=== PATIENT | female | born 1970 | race Caucasian/White ===

== ENCOUNTER 2018-12-31 08:26 | Day surgery (SDC) | payer OTHER ==
--- NOTE | 2018-12-27 15:15 | HP ---
PREOPERATIVE HISTORY AND PHYSICAL: DATE OF SURGERY/ADMISSION: 12/31/18 ATTENDING SURGEON: Renu Crowell MD.* (DICTATED BY JOHN ZHANG) PROCEDURE: Left thumb carpometacarpal joint arthroplasty, left thumb trigger release. DATE OF OFFICE VISIT/ENCOUNTER: 12/16/18 HISTORY OF PRESENT ILLNESS: This is a 48-year-old female who has had ongoing pain in her left thumb both at the base and in the area of the A1 fran. She has had active triggering in the thumb and clinical evaluation and x-ray show arthritis at the CMC joint. She has had cortisone injections for both of these problems. Unfortunately, the symptoms returned. She is now interested in pursuing surgical intervention for both of these issues. PAST MEDICAL HISTORY: 1. GERD. 2. Diabetes. 3. Hypercholesterolemia. 4. Hypertension. 5. Neck pain. 6. Anxiety/depression. PAST SURGICAL HISTORY: 1. Appendectomy. 2. Tonsillectomy. 3. Right breast lumpectomy. CURRENT MEDICATIONS: 1. Atorvastatin calcium 40 mg. 2. Carisoprodol 350 mg 4 times a day. 3. Escitalopram oxalate 10 mg daily. 4. Ibuprofen 200 mg 2 tabs q.6 hours p.r.n. 5. Lisinopril 20 mg daily. 6. Metformin HCl 500 mg daily. 7. Multivitamin daily. 8. Omeprazole 20 mg daily. ALLERGIES: No known drug allergies. FAMILY MEDICAL HISTORY: Hypertension. 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 She is a former smoker. She 5 five years ago, prior to that she smoked 3 to 4 cigarettes a day for about 10 years. She denies recreational drug use. She does drink alcohol on rare occasions. REVIEW OF SYSTEMS: Negative for general, cephalic, cardiovascular, respiratory , GI, other musculoskeletal, integumentary, endocrine, neurologic and hematologic symptoms. Infectious diseases is negative for MRSA, hepatitis C, HIV. PHYSICAL EXAMINATION GENERAL: Well-developed, well nourished 48-year-old female in on acute distress. VITAL SIGNS: Height 5 feet 2 inches, weight 177 pounds, blood pressure 122/84, pulse rate 64. HEENT: Normocephalic, atraumatic. Pupils are equal, round and reactive to light and accommodation. Extraocular movements are intact. Throat is clear. NECK: Supple. No palpable lymph nodes. PULMONARY: Lungs are clear to auscultation bilaterally. No wheezes, rales, or rhonchi. CARDIOVASCULAR: Regular rate and rhythm. S1, S2. No murmurs, rubs or gallop. No edema. ABDOMEN: Positive bowel sounds, soft, nontender. MUSCULOSKELETAL: On exam of her left hand, she has a prominence of her thumb CMC joint and exquisite tenderness at the thumb CMC joint as well as at the A1 fran of the left thumb. She has trouble flexing the thumb because of pain and locking. Skin is intact. Neurovascular function is intact. NEUROLOGIC: Alert and oriented x3. Cranial nerves II through XII are intact. Sensation is intact to light touch. IMAGING STUDIES: AP, lateral, and oblique of her left thumb show moderate-to- severe degenerative arthritis at the CMC joint. IMPRESSION: Left thumb carpometacarpal joint arthritis and left trigger thumb. PLAN: The patient is scheduled to undergo a left thumb carpometacarpal joint arthroplasty and a left thumb trigger release with Dr. Crowell on 12/31/18. She will return to the office in 10 days postop for follow up and suture removal. A prescription for [place] was e-scribed to the patient's pharmacy for postoperative pain management. JOHN ZHANG [id number]/CPS #: [id number] MTDD
[~2018-12-31 08:26] MED LIST: Buffered Lidocaine 1% SYRIN* 1 ML/SYRINGE INTRADERM ONE; Lactated Ringers 1000 ML Bag* 1,000 ML IV SCH; Sodium Citrate/Citric Acid* 15 ML UDC PO ONE
[2018-12-31] MEDS ORDERED: ceFAZolin 2 GM PREMIX in ORs 2 GM/50 ML BAG IVPB ONE (08:31)
[2018-12-31] MEDS ORDERED: Midazolam* 1 MG/ML 2 ML VIAL (2 MG) ONE ×3 (10:06→10:49)
[2018-12-31] MEDS ORDERED: Lidocaine 0.5%* 50 ML SDV ONE (10:09)
[2018-12-31] MEDS ORDERED: Bupivacaine 0.5% SDV PF* 30ML VIAL ONE (10:30)
[2018-12-31] MEDS ORDERED: fentaNYL* 50 MCG/ML 2 ML VIAL (100 MCG VIAL) ONE (10:45)
[2018-12-31] MEDS ORDERED: Propofol* 10 MG/ML 20 ML BTL ONE (10:48)
[2018-12-31] MEDS ORDERED: Naloxone* 0.4 MG/ML 1 ML VIAL IV PRN (11:14)
[2018-12-31] MEDS ORDERED: HYDROcodone/ACETAMIN 5-325 MG* 1 TAB ONE (11:23)
[2018-12-31 11:54] VITALS: BP 127/75
--- NOTE | 2018-12-31 13:29 | OP ---
CC: Dr. Crowell* OPERATIVE REPORT: DATE OF OPERATION: 12/31/18 - GURPREET DATE OF : 70 SURGEON: Renu Crowell MD ASSISTANTS: JOHN Blue and JOHN Chatterjee ANESTHESIOLOGIST: Jac Breen DO ANESTHESIA: IV regional. PRE-OP DIAGNOSES: Left trigger thumb and left carpometacarpal arthritis of the thumb. POST-OP DIAGNOSES: Left trigger thumb and left carpometacarpal arthritis of the thumb. OPERATIVE PROCEDURE: Left trigger thumb release and left thumb CMC arthroplasty. ESTIMATED BLOOD LOSS: Zero. TOURNIQUET TIME: About 30 minutes. INDICATIONS FOR PROCEDURE: Vanesa is a 48-year-old female who has painful arthritis at the base of her left thumb as well as triggering of the left thumb. She presents for trigger release and CMC arthroplasty. DESCRIPTION OF PROCEDURE: The patient was brought to the operating room, was given an IV regional anesthetic and a sedation anesthetic. The skin of her left upper extremity was prepped and draped in the usual sterile fashion. A transverse incision was made over the A1 fran of the left thumb. We dissected bluntly through the subcutaneous tissue. The digital neurovascular bundles were retracted by the surgical nurse practitioner, Teresa Monteiro, whose assistance was essential for safe completion of the case. The A1 fran was incised longitudinally, releasing the flexor tendon which was in good condition. The wound was irrigated and the skin edges were reapproximated with 4-0 nylon suture. Next, an S-shaped incision was made centered over the CMC joint of the left thumb. We dissected through the subcutaneous tissue, again branches of the radial sensory nerve were located and then retracted by the surgical nurse practitioner, Teresa Monteiro. The APL and EPB tendons were retracted and then a distally based U-shaped flap was created of the CMC joint capsule and subperiosteally dissected off of the CMC joint and trapezium. The trapezium was removed in its entirety and sent for pathology. The joint capsule was then secured to the FCR tendon with 4-0 nylon suture and the remainder of the capsule was closed with 4-0 nylon suture. Abduction position of the MP joint was nicely flexed. The wound was irrigated and the skin edges were reapproximated with 4-0 nylon suture. Wound was dressed with Xeroform, 4x4, Webril, and a thumb spica splint with some metacarpal abducted and the MP joint flexed 30 degrees. The patient tolerated the procedure well and was brought to the recovery room in good condition. [id number]/CPS #: [id number] YANNI
== END 2018-12-31 11:45 | disposition home or self-care (01) ==
LOC: OREAST 08:26
PROVIDERS: ATTEND Orthopaedic Surgery
DX: M18.12 Unilateral primary osteoarthritis of first carpometacarpal joint, left hand (principal); M65.312 Trigger thumb, left thumb; I10 Essential (primary) hypertension; F41.8 Other specified anxiety disorders; K21.9 Gastro-esophageal reflux disease without esophagitis; E11.9 Type 2 diabetes mellitus without complications; Z79.84 Long term (current) use of oral hypoglycemic drugs; E78.00 Pure hypercholesterolemia, unspecified
CPT/HCPCS: 81025; 88304; 88311; J0690; J2250; J2704; J3010; J3490

== ENCOUNTER 2019-08-25 16:08 | Emergency (ER) | payer OTHER ==
[2019-08-25] MEDS ORDERED: Ondansetron ODT TAB* 4 MG PO ONE (17:12)
--- NOTE | 2019-08-25 17:20 | UC ---
UC General HPI - HPI Summary HPI Summary: 49-year-old woman comes in with a chief complaint of injury sustained after a trip and fall at home about 2 hours ago. Patient was walking down the stairs Stairs She Tried to Avoid the Cat and Fell 4-5 Steps down and She Struck Her Head She Feels like She Lost Consciousness She's Not Sure How Long She Lost Consciousness for She Thinks It Was Just about a Minute. Also has left-sided neck pain, left shoulder humerus and elbow pain, right wrist and thumb pain. Denies any leg or hip pain, no complaint of any shortness of breath. Does feel nauseous. The light bothers her eyes a little bit. No weakness or numbness. She does have increased pain with movement of any the injured areas. She did take some acetaminophen prior to arrival. Does have an abrasion on her forehead with dried blood on. - History of Current Complaint Chief Complaint: UCHeadInjury Stated Complaint: HEAD, SHOULDER INJURY, BRIEF LOSS OF CONS. Time Seen by Provider: 08/25/19 17:04 Hx Last Menstrual Period: mirena Pain Intensity: 10 - Allergy/Home Medications Allergies/Adverse Reactions: Allergies Allergy/AdvReac Type Severity Reaction Status Date / Time No Known Allergies Allergy Verified 08/25/19 16:26 Home Medications: Home Medications Acetaminophen [Tylenol] 325 mg PO Q6HR 08/25/19 [History Confirmed 08/25/19] PMH/Surg Hx/FS Hx/Imm Hx Previously Healthy: Yes Endocrine History: Diabetes, Dyslipidemia Cardiovascular History: Hypertension GI/ History: Gastroesophageal Reflux - Surgical History Surgical History: None Surgery Procedure, Year, and Place: [place] [facility] [place], [facility] breast biopsy, 2016, [facility] - Family History Known Family History: Positive: None Negative: Cardiac Disease, Hypertension, Diabetes - Social History Alcohol Use: Rare Alcohol Amount: 2 per month Substance Use Type: None Smoking Status (MU): Former Smoker When Did the Patient Quit Smoking/Using Tobacco: 10 yrs ago Review of Systems All Other Systems Reviewed And Are Negative: Yes Constitutional: Positive: Other - SEE HPI Skin: Positive: Other - SEE HPI Eyes: Positive: Other - SEE HPI ENT: Positive: Negative Respiratory: Positive: Negative Cardiovascular: Positive: Negative Gastrointestinal: Positive: Nausea Motor: Positive: Other - SEE HPI Neurovascular: Positive: Negative Musculoskeletal: Positive: Other: - SEE HPI Neurological: Positive: Headache Psychological: Positive: Negative Is Patient Immunocompromised?: No Physical Exam Triage Information Reviewed: Yes Appearance: Well-Appearing, Well-Nourished, Pain Distress - MILD WITH ROM AND EXAM Vital Signs: Initial Vital Signs Temp 98 F 08/25/19 16:18 Pulse 111 08/25/19 16:18 Resp 16 08/25/19 16:18 BP 136/86 08/25/19 16:18 Pulse Ox 95 08/25/19 16:18 Vital Signs Reviewed: Yes Eyes: Positive: Other: - PERRLA EOMI. Patient reports mild photophobia when examining pupillary response with light. ENT: Positive: TMs normal - No hemotympanum Neck: Positive: Supple, Other: - Mild tenderness to palpation left side of the neck. No tenderness in the midline. Respiratory: Positive: Lungs clear, Normal breath sounds, No respiratory distress Cardiovascular: Positive: RRR Musculoskeletal: Positive: Other: - Mild tenderness to palpation left neck. Tender to palpation the left shoulder joint the left humerus and left elbow. Left fingers wrists have full range of motion and normal capillary refill normal sensation normal radial pulse. Clavicles are nontender to palpation except for the distal left clavicle.. Right shoulder is nontender to palpation. Right elbow has mild tenderness to palpation has full range of motion. Patient's tender to palpation right distal radius into the right proximal thumb. She has difficulty moving the thumb secondary to pain. Fingers have full range of motion. Normal capillary refill normal right radial pulse. No sensation deficit. Legs have full range of motion without any pain. Neurological: Positive: Muscle Tone Normal, Other: - Patient mildly slow to respond to questions. No focal neurologic deficit. Does answer appropriately. Psychological: Positive: Age Appropriate Behavior Skin: Positive: Other - Abrasion left forehead Course/Dx - Course Course Of Treatment: Third Loader: Neil Pichardo F ([id number]) Pool Table Mechanic: CHATO ( CHATO) Report Date: 08/25/2019 18:09:00 Report Status: Final ====== Start of Report Content Patient Name: ELI YI Medical Record#: [id number] Ordering Physician: Nir Blackwood MD Acct.#: [id number] : 1970 Age: 49 Sex: F Location: [facility] Exam Date: 08/25/191712 ADM Status: REG ER Order Information: SHOULDER LEFT 2+ VWS Accession Number: [id number] CPT: 41924 INDICATION: Left shoulder injury. TECHNIQUE: 4 views of the left shoulder were obtained. FINDINGS: The bones are in normal alignment. No fracture is seen. The glenohumeral and acromioclavicular joint spaces appear maintained. IMPRESSION: NO EVIDENCE FOR FRACTURE. < Electronically signed by Neil Pichardo MD in OV> 08/25/191805 Dictated By: Neil Pichardo MD Dictated Date/Time: 08/25/191804 Transcribed Date/Time: 10/13 Copy to: CC:Gay Bueno MD; Nir Blackwood MD Imaging - [facility] Imaging - [facility] [address] [place] [address] ph [phone]) ph ([phone]) ph ([phone]) ===== End of Report Content Third Loader: Neil Pichardo F ([id number]) Pool Table Mechanic: CHATO ( NUANCE) Report Date: 08/25/2019 18:09:00 Report Status: Final ====== Start of Report Content Patient Name: ELI YI Medical Record#: [id number] Ordering Physician: Nir Blackwood MD Acct.#: [id number] : 1970 Age: 49 Sex: F Location: [facility] Exam Date: 08/25/19 1713 ADM Status: REG ER Order Information: HUMERUS LEFT Accession Number: [id number] CPT: 15990 INDICATION: Left humerus injury. TECHNIQUE: 2 views of the left humerus were obtained. FINDINGS: The bones are in normal alignment. No fracture is seen. IMPRESSION: NO EVIDENCE FOR FRACTURE. <Electronically signed by Neil Pichardo MD in OV> 08/25/191804 Dictated By: Neil Pichardo MD Dictated Date/Time: 08/25/191803 Transcribed Date/Time: 08/25/191803 Copy to: CC:Gay Bueno MD; Nir Blackwood MD Imaging - [facility] Imaging - [place] [facility] [address] [place] [address] ph [phone]) ph ([phone]) ph ([phone]) End of Report Content Third Loader: Neil Pichardo F, ([id number]) Pool Table Mechanic: CHATO, ( NUANCE) Report Date: 08/25/2019 18:08:00 Report Status: Final ====== Start of Report Content Patient Name: ELI YI Medical Record#: [id number] Ordering Physician: Nir Blackwood MD Acct.#: [id number] : 1970 Age: 49 Sex: F Location: [facility] Exam Date: 08/25/191712 ADM Status: [facility] ER Order Information: HAND - RIGHT MINIMUM 3 VIEWS Accession Number: [id number] CPT: 92434 INDICATION: Right hand injury. TECHNIQUE: 4 views of the right hand were obtained. FINDINGS: The bones are in normal alignment. No fracture is seen. There is moderate osteoarthritic change in the first carpal metacarpal joint. IMPRESSION: NO EVIDENCE FOR FRACTURE, IF THE PATIENT'S SYMPTOMS PERSIST RECOMMEND FOLLOW-UP IMAGING. <Electronically signed by Neil Pichardo MD in OV> 08/25/191803 Dictated By: Neil Pichardo MD Dictated Date/Time: 08/25/191802 Transcribed Date/Time: 08/25/191802 Copy to: CC:Gay Bueno MD; Nir Blackwood MD Imaging - [facility] Imaging - [facility] Imaging - [facility] [address] [address] ph ) ph [phone]) ph ([phone]) End of Report Content ==== Third Loader: Neil Pichardo F ([id number]) Pool Table Mechanic: CHATO, ( NUANCE) Report Date: 08/25/2019 18:06:00 Report Status: Final ====== Start of Report Content Patient Name: ELI YI Medical Record#: [id number] Ordering Physician: Nir Blackwood MD Acct.#: [id number] : 1970 Age: 49 Sex: F Location: [facility] Exam Date: 08/25/191712 ADM Status: REG ER Order Information: ELBOW LEFT 3+VWS Accession Number: [id number] CPT: 19731 INDICATION: Left elbow injury. TECHNIQUE: 4 views of the left elbow were obtained. FINDINGS: The bones are in normal alignment. No joint effusion or fracture is seen. Joint spaces appear maintained. IMPRESSION: NO EVIDENCE FOR FRACTURE. <Electronically signed by Neil Pichardo MD in OV> 08/25/191801 Dictated By: Neil Pichardo MD Dictated Date/Time: 08/25/191801 Transcribed Date/Time: 08/25/191801 Copy to: CC:Gay Bueno MD; Nir Blackwood MD Imaging - [facility] Imaging [facility] [address] [address] ph [phone]) ph ) ph [phone]) End of Report Content Third Loader: Neil Pichardo F, ([id number]) Pool Table Mechanic: CHATO ( NUANCE) Report Date: 08/25/2019 18:06:00 Report Status: Final ====== Start of Report Content Patient Name: ELI YI Medical Record#: [id number] Ordering Physician: Nir Blackwood MD Acct.#: [id number] : 1970 Age: 49 Sex: F Location: [facility] Exam Date: 08/25/19 1712 ADM Status: REG ER Order Information: CT SPINE CERVICAL W/O Accession Number: [id number] CPT: 36564 INDICATION: Trauma. COMPARISON: Comparison is made with a prior study from April 18, 2011. TECHNIQUE: Contiguous axial sections were obtained from the skull base through the T2 vertebra. Images were reconstructed in the sagittal and coronal planes. FINDINGS: VERTEBRA: There is straightening or reversal of the normal cervical lordosis. No fracture is seen. C2-C3: There is a mild broad-based disc bulge. No spinal canal or neural foraminal narrowing is seen. C3-C4: There is a mild broad-based disc bulge. No spinal canal or neural foraminal narrowing is seen. C4-C5: No significant spinal canal or neural foraminal narrowing is seen. C5-C6 : There is posterior uncinate process spurring associated with a disc bulge. There is mild to moderate spinal canal narrowing present. There is mild to moderate neural foraminal narrowing on the left side. C6-C7: There is posterior uncinate process spurring associated with a broad-based disc bulge. There appears be mild spinal canal narrowing. LUNG APICES: The lung apices appear clear. IMPRESSION: 1. STRAIGHTENING AND REVERSAL OF THE NORMAL CERVICAL LORDOSIS. NO FRACTURE IS SEEN. 2. MILD TO MODERATE CERVICAL SPONDYLOSIS DESCRIBED. < Electronically signed by Neil Pichardo MD in OV> 08/25/19 1801 Dictated By: Neil Pichardo MD Dictated Date/Time: 08/25/191751 Transcribed Date/Time: 10/13 Copy to: CC:Gay Bueno MD; Nir Blackwood MD Imaging - [facility] Imaging - [facility] Imaging - [facility] [address] [address] ph [phone]) ph ([phone]) ph ([phone]) ===== End of Report Content Third Loader: Neil Pichardo F ([id number]) Pool Table Mechanic: CHATO ( NUANCE) Report Date: 08/25/2019 17:55:00 Report Status: Final ====== Start of Report Content Patient Name: ELI YI Medical Record#: [id number] Ordering Physician: Nir Blackwood MD Acct.#: [id number] : 1970 Age: 49 Sex: F Location: [facility] Exam Date: 08/25/191711 ADM Status: [facility] Order Information: CT BRAIN WO Accession Number: [id number] CPT: 22491 INDICATION: Head injury. COMPARISON: Comparison is made with a prior study from April 18, 2011. TECHNIQUE: Contiguous axial sections of the brain were obtained from the skull base to the vertex without contrast. FINDINGS: The ventricles, cisterns and sulci are within normal limits. No significant focal abnormality or mass effect is seen. There is no evidence for hemorrhage. The visualized portion of the paranasal sinuses and mastoid air cells appear clear. IMPRESSION: NO EVIDENCE FOR ACUTE INTRACRANIAL ABNORMALITY. <Electronically signed by Neil Pichardo MD in OV> 08/25/191751 Dictated By: Neil Pichardo MD Dictated Date/Time: 08/25/191748 Transcribed Date/Time: 08/25/191748 Copy to: CC:Gay Bueno MD; Nir Blackwood MD Imaging - [facility] Imaging - [facility] Imaging - [facility] [address] [facility] [address] [place] [id number] [place] [address] ph [phone]) ph ([phone]) ph [phone]) End of Report Content I discussed the x-rays with the patient. Patient reports Zofran she was given in clinic did improve her nausea. Patient has no focal neurologic deficit. We discussed signs and symptoms of head injuries concussion. If she has any concussion symptoms persist she is to follow-up with sports medicine. Also discussed soft tissue injuries of the shoulder and wrist to include navicular injury or rotator cuff injury and let the patient know that she needs to follow up with sports medicine or orthopedics if she does not improve completely. In clinic patient. Thumb spica splint by nursing and also a left sling by nursing patient neurovascular intact after placement. I discussed frozen shoulder and the need to perform range of motion exercises with a left shoulder I demonstrated these exercises to her. Plan will be ibuprofen and acetaminophen and Zofran as needed and follow-up with sports medicine orthopedic as needed. Also discussed if any symptoms worsened she needed to get seen in the emergency department right away. - Diagnoses Provider Diagnosis: Head injury, Concussion, Abrasion of forehead, Left shoulder pain, Pain of left humerus, Left elbow pain, Right wrist pain, Pain of right thumb, Neck pain Discharge ED - Sign-Out/Discharge Documenting (check all that apply): Patient Departure All imaging exams completed and their final reports reviewed: Yes - Discharge Plan Condition: Stable Disposition: HOME Prescriptions: Ondansetron ODT TAB* [Zofran 4 MG Odt TAB*] 4 mg PO Q6H PRN #15 tab.odt PRN Reason: Nausea Patient Education Materials: Head Injury (ED), Concussion (ED), Shoulder Pain ( ED), Elbow Sprain (ED), Wrist Injury (ED), Finger Sprain (ED), Abrasion (ED), Cervical Strain (ED) Referrals: Gay Bueno MD [Primary Care Provider] - [facility] [Provider Group] Nuris Betancourt MD [Medical Doctor] - Additional Instructions: FOLLOW UP WITH SPORTS MEDICINE FOR YOUR CONCUSSION OR INJURIES OR ORTHOPEDICS FOR YOUR NON CONCUSSION INJURIES IF NOT COMPLETELY IMPROVED. GO TO THE EMERGENCY DEPARTMENT IF WORSE; WEAKNESS, NUMBNESS, CONFUSION, DIFFICULTY WITH VISION OR SPEECH, PAIN, UNEXPLAINED VOMITING OR ANY QUESTIONS OR CONCERNS. - Billing Disposition and Condition Condition: STABLE Disposition: Home
[2019-08-25] MEDS ORDERED: Ibuprofen TAB* 600 MG PO ONE (18:32)
[2019-08-25 18:59] VITALS: BP 126/84
== END 2019-08-25 18:59 | disposition home or self-care (01) ==
LOC: UCEAST 16:08
DX: S09.90XA Unspecified injury of head, initial encounter (principal); S06.0X0A Concussion without loss of consciousness, initial encounter; S00.81XA Abrasion of other part of head, initial encounter; E11.9 Type 2 diabetes mellitus without complications; I10 Essential (primary) hypertension; M47.892 Other spondylosis, cervical region; M25.512 Pain in left shoulder; M25.522 Pain in left elbow; M25.531 Pain in right wrist; M79.644 Pain in right finger(s); M54.2 Cervicalgia; Z87.891 Personal history of nicotine dependence; W10.9XXA Fall (on) (from) unspecified stairs and steps, initial encounter; Y93.01 Activity, walking, marching and hiking; Y92.009 Unspecified place in unspecified non-institutional (private) residence as the place of occurrence of the external cause
CPT/HCPCS: 70450; 72125; 99213; A9270-GY; G0463

== ENCOUNTER 2019-10-24 22:11 | Observation (INO) | payer OTHER ==
--- NOTE | 2019-10-24 22:21 | ED ---
Complex/Multi-Sys Presentation - HPI Summary HPI Summary: 49 year old F presenting to [facility] with a chief complaint of a fall and shakiness since 17:00/18:00. The patient rates the pain 6/10 in severity. Patient reports difficulty walking, blurry vision, some difficulty with her speech, and that she was unable to get up after her fall with the assistance of her . Symptoms aggravated by nothing. Symptoms alleviated by nothing. Patient denies nausea, vomiting, or double vision. Per EMS the patient has reportedly been heavily drinking for the last week and her last alcoholic beverage was yesterday. Per her the patient began shaking and was incoherent after dinner at 19:00 which progressively worsened as he could not help the patient ambulate secondary to the diffuse tremors. He reports that the patient last drank alcohol yesterday in the [employer]. History of diabetes which is now diet controlled. Medication list reviewed. Allergy list reviewed. The patient is not prescribed blood thinners. Provider in room at 2209. NIHSS completed at 22:12. Andressa George called at 22:30. - History Of Current Complaint Time Seen by Provider: 10/24/19 22:11 Hx Obtained From: Patient, Family/[employer]at [employer] - , EMS Onset/Duration: Sudden Onset Timing: Constant Severity Currently: Moderate - 6/10 Aggravating Factor(s): None Alleviating Factor(s): None Associated Signs And Symptoms: Positive: Other - Fall; difficulty walking; difficulty speaking. Negative: Nausea, Vomiting - Allergies/Home Medications Allergies/Adverse Reactions: Allergies Allergy/AdvReac Type Severity Reaction Status Date / Time No Known Allergies Allergy Verified 10/24/19 22:42 Home Medications: Home Medications Omeprazole CAP (NF) [Prilosec CAP* 20 MG] 20 mg PO QAM 11/11/14 [History Confirmed 10/24/19] Ibuprofen TAB* [Motrin TAB* 600 MG] 600 mg PO Q6H PRN #20 tab 08/25/19 [Rx Confirmed 10/24/19] ALPRAZolam [Alprazolam] 0.25 mg PO BID 10/24/19 [History Confirmed 10/24/19] Acetaminophen TAB* [Tylenol TAB*] 325 mg PO Q6H PRN 10/24/19 [History Confirmed 10/24/19] Albuterol HFA INHALER* [Ventolin HFA Inhaler*] 1 - 2 puff INH Q6H PRN 10/24/19 [ History Confirmed 10/24/19] Atorvastatin* [Lipitor*] 40 mg PO DAILY 10/24/19 [History Confirmed 10/24/19] Escitalopram * [Lexapro *] 20 mg PO DAILY 10/24/19 [History Confirmed 10/24/19] Lisinopril TAB* [Prinivil TAB*] 20 mg PO DAILY 10/24/19 [History Confirmed 10/23] Multivitamins/Minerals TAB* [Theragran/minerals TAB*] 1 tab PO DAILY 10/24/19 [ History Confirmed 10/24/19] metFORMIN* [Glucophage 500 MG TAB *] 500 mg PO DAILY 10/24/19 [History Confirmed 10/24/19] traZODone TAB* [Desyrel TAB*] 50 mg PO BEDTIME 10/24/19 [History Confirmed 10/23] Carisoprodol [Soma] 350 mg PO Q6HR PRN 10/25/19 [History Confirmed 10/25/19] PMH/Surg Hx/FS Hx/Imm Hx Endocrine/Hematology History: Reports: Hx Diabetes - type 2 - Denies: Hx Thyroid Disease Cardiovascular History: Reports: Hx Hypercholesterolemia, Hx Hypertension - on meds Denies: Hx Pacemaker/ICD, Other Cardiovascular Problems/Disorders Respiratory History: Denies: Hx Asthma GI History: Reports: Hx Gastroesophageal Reflux Disease Denies: Hx Ulcer Musculoskeletal History: Reports: Hx Arthritis - eugenie thumb Denies: Other Musculoskeletal History Sensory History: Reports: Hx Contacts or Glasses - readers Denies: Hx Hearing Aid Opthamlomology History: Reports: Hx Contacts or Glasses - readers Psychiatric History: Denies: Hx Panic Disorder - Cancer History Hx Chemotherapy: No Hx Radiation Therapy: No - Surgical History Surgery Procedure, Year, and Place: appendix, 20 yrs ago, [facility]. tonsils,25 yrs ago, [facility]. rt breast biopsy, 2016, [facility] Hx Anesthesia Reactions: No Infectious Disease History: Denies: Hx Clostridium Difficile, Hx Hepatitis, Hx Human Immunodeficiency Virus (HIV), Hx of Known/Suspected MRSA, Hx Shingles, Hx Tuberculosis, Hx Known/ Suspected VRE, Hx Known/Suspected VRSA, History Other Infectious Disease - Family History Known Family History: Negative: Cardiac Disease, Hypertension, Diabetes - Social History Alcohol Use: Daily - For the past week Alcohol Amount: 2 per month Hx Substance Use: No Substance Use Type: Reports: None Hx Tobacco Use: Yes Smoking Status (MU): Former Smoker Review of Systems Constitutional: Other - Fall; shaking Eyes: Negative - Double vision Positive: Blurred Vision Negative: Vomiting, Nausea Neurological/Mental Status: Other - Difficulty walking; difficulty speaking All Other Systems Reviewed And Are Negative: Yes Physical Exam - Summary Physical Exam Summary: Constitutional: Well-developed, Well-nourished, Alert, oriented to person, place , time, event. (-) Distressed Skin: Warm, Dry HENT: Normocephalic; Atraumatic Eyes: Conjunctiva normal; pupils equal and reactive Neck: Musculoskeletal ROM normal neck. (-) JVD, (-) Stridor, (-) Tracheal deviation; no lymphadenopathy in neck Cardio: Rhythm regular, rate normal, Heart sounds normal; Intact distal pulses; The pedal pulses are 2+ and symmetric. Radial pulses are 2+ and symmetric. (-) Murmur Pulmonary/Chest wall: Effort normal. (-) Respiratory distress, (-) Wheezes, (-) Rales Abd: Soft, (-) tenderness, (-) Distension, (-) Guarding, (-) Rebound Musculoskeletal: (-) Edema Lymph: (-) Cervical adenopathy Neuro: Alert, Oriented x3; NIH Stroke Scale of 5, see scale. GCS 14; diffuse tremor and she is having difficulty naming objects; confused; mild ataxia bilaterally; mild dysmetria on the left in the upper and lower extremities; questionable left lower quadrantanopia in the eyes; good strength and sensation bilaterally although she does have a drift in her legs that could be a tremor. Psych: Mood and affect Normal Triage Information Reviewed: Yes Vital Signs Reviewed: Yes - Meeker Coma Scale Best Eye Response: 4 - Spontaneous Best Motor Response: 5 - Purposeful Movement Best Verbal Response: 5 - Oriented Coma Scale Total: 14 Procedures - Sedation Patient Received Moderate/Deep Sedation with Procedure: No Diagnostics - Laboratory Result Diagrams: 10/24/19 23:01 10/24/19 23:01 Lab Statement: Any lab studies that have been ordered have been reviewed, and results considered in the medical decision making process. - Radiology Chest x-ray Radiology Interpretation Completed By: ED Physician Summary of Radiographic Findings: NAD. ED physician has reviewed and interpreted this EKG. - CT Head CTA CT Interpretation Completed By: Radiologist Summary of CT Findings: Normal head CTA. ED physician has reviewed this report. Brain CT CT Interpretation Completed By: Radiologist Summary of CT Findings: 1. No acute intracranial abnormality. Carol Stroke Program Early CT Score. (ASPECTS) = 10. 2. Brain atrophy out of proportion to patient's age. ED physician has reviewed this report. - EKG 22:51 Cardiac Rate: NL EKG Rhythm: Sinus Rhythm Summary of EKG Findings: Normal sinus rhythm at 80 bpm, normal NM, normal QRS, normal QTc, normal axis, normal ST, normal T-waves, normal EKG. ED physician has reviewed and interpreted this EKG. 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 Hand: Both Correctly Best Gaze (Only Horizontal Eye Movement): Normal Visual Field Testing: No Visual Loss Facial Paresis-Pt to Smile & Close Eyes or Grimace Symmetry: Normal/Symmetrical Motor Function - Right Arm: No Drift-Holds 10 Seconds Motor Function - Left Arm: No Drift-Holds 10 Seconds Motor Function - Right Leg: Drifts LT 10 seconds Motor Function - Left Leg: Drifts LT 10 seconds Limb Ataxia-Must be out of Proportion to Weakness Present: Present in Two Limbs Sensory (Use Pinprick to Test Arms/Legs/Trunk/Face): Normal Best Language (Describe Picture, Name Items): No Aphasia Dysarthria (Read Several Words): Slurs Some Words Extinction and Inattention: No Abnormality Total Score: 5 Re-Evaluation - Re-Evaluation First Eval Re-Evaluation Time: 23:45 Comment: Patient and aware of results, plan for admission Complex Multi-Symp Course/Dx Course Of Treatment: 49 year old F presenting to [facility] with a chief complaint of a fall and shakiness since 17:00/18:00. The patient rates the pain 6/10 in severity. Patient reports difficulty walking, blurry vision, some difficulty with her speech, and that she was unable to get up with the assistance of her . Physical exam findings: NIH Stroke Scale of 5, see scale. GCS 14; diffuse tremor and she is having difficulty naming objects; confused; mild ataxia bilaterally; mild dysmetria on the left in the upper and lower extremities; questionable left lower quadrantanopia in the eyes; good strength and sensation bilaterally although she does have a drift in her legs that could be from the tremors. Code judy called. TPA not considered as patient is out of the time frame. An EKG reveals normal sinus rhythm at 80 bpm, normal NM, normal QRS, normal QTc, normal axis, normal ST, normal T-waves, normal EKG. Head CTA reveals, per radiologist, Normal head CTA. Brain CT reveals, per radiologist, 1. No acute intracranial abnormality. Carol Stroke Program Early CT Score ( ASPECTS) = 10. 2. Brain atrophy out of proportion to patient's age. Chest x-ray reveals, per ED physician, NAD. Laboratory results with no significant abnormalities except for RBC of 3.39, Hgb of 11.4, Hct of 33, MCH of 34, BUN of 28, BUN/creatinine ratio of 30.8, glucose of 124, and POC glucose of 125. In the ED course, the patient was given normal saline and lorazepam. We discussed patient care with Dr. Terrell, [facility], who recommends admission. Dr. Baca accepts patient for admission. The patient is agreeable with this plan. - Diagnoses Provider Diagnoses: TIA (transient ischemic attack), Alcohol withdrawal During the Visit The Following Alert/Code Occurred: Andressa George - Called at 22:30. - Physician Notifications Discussed Care Of Patient With: Reynaldo Terrell Time Discussed With Above Provider: 22:47 Instructed by Provider To: Other - Telestroke began with Dr. Terrell who recommends admission. [23:56] Spoke with Dr. Baca regarding the patient, she accepts patient for admission. Discharge ED - Sign-Out/Discharge Documenting (check all that apply): Patient Departure - admit - Discharge Plan Condition: Stable Disposition: ADMITTED TO [facility] - Billing Disposition and Condition Condition: STABLE Disposition: Admitted to [facility] - Attestation Statements Document Initiated by Scribe: Yes Documenting Scribe: Eli Davenport Provider For Whom Scribe is Documenting (Include Credential): Jordyn Ovalles MD Scribe Attestation: Shannon Silva Natalie George, scribed for Jordyn Kirkpatrick MD on 10/25/19 at 0558. Scribe Documentation Reviewed: Yes Provider Attestation: The documentation as recorded by the scribe, Eli Davenport accurately reflects the service I personally performed and the decisions made by me, Jordyn Kirkpatrick MD Status of Scribe Document: Viewed
[2019-10-24] MEDS ORDERED: NS 0.9% 1000 ML** 1,000 ML IV ONE (22:30)
[2019-10-24] MEDS ORDERED: Iodixanol* (CONTRAST) 320 MG/ML 100 ML SDV IV ONE (22:46)
--- OUTSIDE RECORDS SUMMARY | 2019-10-24 23:00 | XMS REPORT | Summary of Care ---
:1970 Author Organization [facility] Address [address] [address] [place] [address] Care Team Providers Name Role Phone Gay Bueno Primary Care Provider Reason for Visit Reason Comments Follow Up lab results Diabetes Hyperlipidemia Imm/Inj flu shot today Shoulder Pain left shoulder pain, fell down 6-7 steps 3 mos ago and hurts since then. Seen in ER-no fracture Medication Refill Reference #: [id number] Encounter Details Date Type Department Care Team Description 09/15/2019 Office Visit [facility] Gay Bueno MD Neck pain (Primary Dx); Medicine [address] Essential hypertension; [address] [place] [address] Elevated blood sugar; [place] [address] Allergic rhinitis due to other allergic trigger, unspecified seasonality; [phone] Insomnia, unspecified type; Lipid disorder; Weight gain Allergies No Known Allergiesdocumented as of this encounter (statuses as of 09/15/2019) Medications Medication Sig Dispensed Refills Start End Status Date Date Blood Glucose Brand:Freestyle 100 Strip 11 Active Monitoring Suppl Lite Dx: 250.02 5 (BLOOD GLUCOSE TEST Test Blood STRIPS Glucose BID STRP)Indications: DM (diabetes mellitus) ([facility]) Lancets Does not by Does not 100 Each 3 Active apply apply route 5 MiscIndications: DM DAILY. (diabetes mellitus) Brand:Freestyle ([facility]) Insulinx Dx:250.02 Test Blood Glucose BID metFORMIN Take 1 Tab by 90 Tab 3 Active (GLUCOPHAGE) 500 MG mouth DAILY. 9 Oral TabIndications: Type 2 diabetes mellitus without complication, without long-term current use of insulin (HCC) lisinopril TAKE ONE TABLET 30 Tab 5 Active (PRINIVIL, ZESTRIL) BY MOUTH ONCE 9 20 MG Oral DAILY TabIndications: DIRECTED Essential hypertension Levonorgestrel by Intrauterine 0 Active (MIRENA, 52 MG, IUT) route. fluticasone [place] 2 Sprays 1 Bottle 0 Active (FLONASE) 50 MCG/ACT in nose DAILY. 9 Nasal SuspensionIndication s: Allergic rhinitis due to other allergic trigger, unspecified seasonality Omeprazole delayed TAKE ONE CAPSULE 90 Cap 1 Active rel cap 20 MG Oral BY MOUTH ONCE 9 CAPSULE DELAYED DAILY RELEASEIndications: DIRECTED Gastroesophageal reflux disease, esophagitis presence not specified escitalopram TAKE ONE TABLET 90 Tab 3 Active (LEXAPRO) 20 MG Oral BY MOUTH ONCE 9 Tab DAILY atorvastatin TAKE ONE TABLET 90 Tab 1 Active (LIPITOR) 40 MG Oral BY MOUTH ONCE 9 TabIndications: High DAILY cholesterol albuterol 3 mL by 360 mg 0 Active (PROVENTIL, Inhalation-SVN 0 VENTOLIN) (2.5 route TWICE MG/3ML) 0.083% DAILY. Inhalation Nebu SolnIndications: Allergic rhinitis due to other allergic trigger, unspecified seasonality albuterol HFA Take 2 Puffs by 1 Inhaler 1 Active (VENTOLIN) 108 (90 inhalation TWO 0 Base) MCG/ACT TIMES DAILY Inhalation Aero Soln NEEDED (Shortness of breath). carisoprodol (SOMA) Take 1 Tab by 120 Tab 3 Active 350 MG Oral mouth EVERY SIX 0 TabIndications: Neck HOURS NEEDED pain (neck and back pain). Max Daily Amount: 1,400 mg. trazodone (DESYREL) Take 1 Tab by 90 Tab 1 Active 50 MG Oral mouth EVERY 0 TabIndications: BEDTIME. Insomnia, unspecified type ALPRAZolam (XANAX) Take 2 Tabs by 20 Tab 0 Active 0.25 MG Oral Tab mouth FOUR TIMES 0 DAILY NEEDED (anxiety). Max Daily Amount: 2 mg. montelukast Take 1 Tab by 30 Tab 0 Discontinued (SINGULAIR) 10 MG mouth DAILY. 9 020 (Therapy Oral TabIndications: Completed) Allergic rhinitis due to other allergic trigger, unspecified seasonality albuterol HFA Take 2 Puffs by 1 Inhaler 1 Discontinued (VENTOLIN) 108 (90 inhalation TWO 9 020 (Reorder) Base) MCG/ACT TIMES DAILY Inhalation Aero Soln NEEDED (Shortness of breath). albuterol 3 mL by 360 mg 0 Discontinued (PROVENTIL, Inhalation-SVN 9 020 (Reorder) VENTOLIN) (2.5 route TWICE MG/3ML) 0.083% DAILY. Inhalation Nebu SolnIndications: Allergic rhinitis due to other allergic trigger, unspecified seasonality guaiFENesin-codeine Take 10 mL by 420 mL 0 Discontinued (ROBITUSSIN AC) mouth EVERY FOUR 9 020 (Therapy 100-10 MG/5ML Oral HOURS NEEDED Completed) SolutionIndications: (for cough). Max Allergic rhinitis Daily Amount: 60 due to other mL. allergic trigger, unspecified seasonality carisoprodol (SOMA) TAKE ONE TABLET 120 Tab 3 Discontinued 350 MG Oral BY MOUTH EVERY 6 9 020 (Reorder) TabIndications: Neck HOURS NEEDED pain , MAX/DAY 4 TABLETS trazodone (DESYREL) TAKE ONE TABLET 90 Tab 1 Discontinued 50 MG Oral BY MOUTH AT 9 020 (Reorder) TabIndications: BEDTIME Insomnia, DIRECTED unspecified type documented as of this encounter (statuses as of 09/15/2019) Active Problems Problem Noted Date Trigger finger of right thumb 11/10/2018 Fracture of left wrist 07/21/2016 Overview: dxa 07/09- Normal bone mineral density Single current episode of major depressive disorder 07/21/2016 Acute back pain 04/30/2016 Lipid disorder 09/18/2015 Overview: Type 2 b - Both triglycerides and cholesterol high Type 2 diabetes mellitus with ketoacidosis without coma, without long-term current use of insulin Overview: Care plan done 12/18/2014 and diagnosis made Much improved after significant weight loss Cervical spondylosis without myelopathy 02/05/2015 Atypical ductal hyperplasia of right breast 01/18/2015 Neck pain 12/28/2014 Overview: Steroid injecton / evaluation by neurosurgery - No surgical problem found - Snoring 11/21/2014 Overview: Negative obsructive sleep apnea test - 2009 documented as of this encounter (statuses as of 09/15/2019) Immunizations Name Administration Dates Next Due Influenza (IM) Preservative Free 09/15/2019, 05/20/2018, 06/19/2015 Influenza (IM) W/Pres 06/17/2016 documented as of this encounter Social History Tobacco Use Types Packs/Day Years Used Date Former Smoker Quit: 02/21/2005 Smokeless Tobacco: Never Used Alcohol Use Drinks/Week oz/Week Comments Yes 5 Glasses of wine 5.0 Sex Assigned at Date Recorded Not on file Job Start Date Occupation Industry Not on file Not on file Not on file Travel History Travel Start Travel End No recent travel history available. documented as of this encounter Last Filed Vital Signs Vital Sign Reading Time Taken Comments Blood Pressure 122/98 09/15/2019 11:00 AM EST Pulse 56 09/15/2019 10:45 AM EST Temperature - - Respiratory Rate - - Oxygen Saturation 96% 09/15/2019 10:45 AM EST Inhaled Oxygen Concentration - - Weight 80.2 kg (176 lb 11.2 oz) 09/15/2019 10:45 AM EST Height 160 cm (5' 3") 09/15/2019 10:45 AM EST Body Mass Index 31.3 09/15/2019 10:45 AM EST documented in this encounter Patient Instructions Patient InstructionsGay Bueno MD - 09/15/2019 10:40 AM ESTDiabetes - Mild - 1. Diet and exercise - Lower the carbs in the diet - Weight loss - Important - write it down - 2. Increase metformin to 2 pills daily- documented in this encounter Progress Notes Gay Bueno MD - 09/15/2019 10:40 AM EST NAME:Eli Fernández 1970: 1970 ENC Date: 09/15/2019 CC: Chief Complaint Patient presents with Follow Up lab results Diabetes Hyperlipidemia Imm/Inj flu shot today Shoulder Pain left shoulder pain, fell down 6-7 steps 3 mos ago and hurts since then. Seen in ER-no fracture Medication Refill Reference #: [id number] Eli Fernández is a 49-y.o. female 1 seen last visit - Stress - father sick / 2. chrnoic medication use- Uses soma on a prn basis 3. Anxiety- increased - Living with father who has changed personality from aneurysm of the brain - Continues on lexapro / prn soma ( I told her this can be tranquilizing- ) Needs something on a prn basis to quell her anxiety- 4. Has gained 30 lbs this yr Weight loss disucssed- 5. HgA1C - elevated - 30 lbs may contribute - Will recheck in interval - increase metformin - 6. Elevated blood pressure - Last blood pressure was low - Repeat at follow up Current Outpatient Medications Medication Sig albuterol (PROVENTIL, VENTOLIN) (2.5 MG/3ML) 0.083% Inhalation Nebu Soln 3 mL by Inhalation-SVN route TWICE DAILY. albuterol HFA (VENTOLIN) 108 (90 Base) MCG/ACT Inhalation Aero Soln Take 2 Puffs by inhalation TWO TIMES DAILY NEEDED (Shortness of breath). ALPRAZolam (XANAX) 0.25 MG Oral Tab Take 2 Tabs by mouth FOUR TIMES DAILY NEEDED (anxiety). Max Daily Amount: 2 mg. atorvastatin (LIPITOR) 40 MG Oral Tab TAKE ONE TABLET BY MOUTH ONCE DAILY Blood Glucose Monitoring Suppl (BLOOD GLUCOSE TEST STRIPS STRP) Brand: Freestyle Lite Dx: 250.02 Test Blood Glucose BID carisoprodol (SOMA) 350 MG Oral Tab Take 1 Tab by mouth EVERY SIX HOURS NEEDED (neck and back pain). Max Daily Amount: 1,400 mg. escitalopram (LEXAPRO) 20 MG Oral Tab TAKE ONE TABLET BY MOUTH ONCE DAILY fluticasone (FLONASE) 50 MCG/ACT Nasal Suspension [place] 2 Sprays in nose DAILY. Lancets Does not apply Misc by Does not apply route DAILY. Brand: Freestyle Insulinx Dx:250.02 Test Blood Glucose BID Levonorgestrel (MIRENA, 52 MG, IUT) by Intrauterine route. lisinopril (PRINIVIL, ZESTRIL) 20 MG Oral Tab TAKE ONE TABLET BY MOUTH ONCE DAILY DIRECTED metFORMIN (GLUCOPHAGE) 500 MG Oral Tab Take 1 Tab by mouth DAILY. Omeprazole delayed rel cap 20 MG Oral CAPSULE DELAYED RELEASE TAKE ONE CAPSULE BY MOUTH ONCE DAILY DIRECTED trazodone (DESYREL) 50 MG Oral Tab Take 1 Tab by mouth EVERY BEDTIME. No current facility-administered medications for this visit. Patient Active Problem List Diagnosis Date Noted Snoring 11/21/2014 Priority: Low Negative obsructive sleep apnea test - 2009 Trigger finger of right thumb 11/10/2018 Fracture of left wrist 07/21/2016 dxa 07/09- Normal bone mineral density Single current episode of major depressive disorder 07/21/2016 Acute back pain 04/30/2016 Lipid disorder 09/18/2015 Type 2 b - Both triglycerides and cholesterol high Type 2 diabetes mellitus with ketoacidosis without coma, without long- term current use of insulin (HCC) 04/16/2015 Care plan done 12/18/2014 and diagnosis made Much improved after significant weight loss Cervical spondylosis without myelopathy 02/05/2015 Atypical ductal hyperplasia of right breast 01/18/2015 Neck pain 12/28/2014 Steroid injecton / evaluation by neurosurgery - No surgical problem found - Family History Problem Relation Age of Onset High Cholesterol Paternal Grandmother No cardiopulmonary symptoms No upper or lower GI complaints No urinary tract symptoms. No bruising/ bleeding. No neurological complaints . No insomnia.+ . Social History Tobacco Use Smoking status: Former Smoker Last attempt to quit: 02/21/2005 Years since quittin.5 Smokeless tobacco: Never Used Substance Use Topics Alcohol use: Yes Alcohol/week: 5.0 standard drinks Types: 5 Glasses of wine per week Drug use: No OBJECTIVE: BP (!) 122/98 | Pulse 56 | Ht 5' 3" (1.6 m) | Wt 176 lb 11.2 oz (80.2 kg) | SpO2 96% | BMI 31.30 kg/m . Heent neg Neck no JVD, thyromegaly or bruit Lungs Clear CV rrr Abd soft, nontender, no organomegaly Ext no edema; no lesions; pulses intact Neuro: intellect intact ; motor including gait unremarkable A/P ICD-9-CM ICD-10-CM 1. Neck pain 723.1 M54.2 carisoprodol (SOMA) 350 MG Oral Tab 2. Essential hypertension- Low last visit - Repeat in interval - 401.9 I10 3. Elevated blood sugar 790.29 R73.9 MICROALBUMIN, RANDOM URINE W/ CREATININE GLYCOHEMOGLOBIN A1C COMPREHENSIVE METABOLIC PANEL 4. Allergic rhinitis due to other allergic trigger, unspecified seasonality 477.8 J30.89 albuterol (PROVENTIL, VENTOLIN) (2.5 MG/3ML) 0.083% Inhalation Nebu Soln 5. Insomnia, unspecified type 780.52 G47.00 trazodone (DESYREL) 50 MG Oral Tab 6. Lipid disorder 272.9 E78.9 LDL, DIRECT 7. Weight gain 783.1 R63.5 THYROID STIMULATING HORMONE Patient Instructions Diabetes - Mild - 1. Diet and exercise - Lower the carbs in the diet - Weight loss - Important - write it down - 2. Increase metformin to 2 pills daily- AUTHOR: Gay Bueno MD 13:10 09/15/2019 documented in this encounter Plan of Treatment Date Type Specialty Care Team Description 09/15/2019 Ancillary Procedure Radiology 12/09/2019 Lab Internal Medicine 12/16/2019 Office [place] [address] [place] [address] [phone] Name Type Priority Associated Diagnoses Order Schedule MICROALBUMIN, RANDOM URINE Lab Routine Elevated blood sugar 1 Occurrences starting W/ CREATININE 09/15/2019 until 03/13/2020 GLYCOHEMOGLOBIN A1C Lab Routine Elevated blood sugar Expected: 09/15/2019 (Approximate), Expires: 03/13/2020 COMPREHENSIVE METABOLIC Lab Routine Elevated blood sugar Expected: 2019 PANEL (Approximate), Expires: 03/13/2020 LDL, DIRECT Lab Routine Lipid disorder Expected: 09/15/2019 (Approximate), Expires: 03/13/2020 THYROID STIMULATING HORMONE Lab Routine Weight gain Expected: 09/15/2019 (Approximate), Expires: 03/13/2020 Health Maintenance Due Date Last Done Comments Diabetic Eye Exam 1970 PAP SMEAR 10/09/2018 10/09/2015, 10/09/2015 MAMMOGRAM (SCREENING) 11/26/2018 11/26/2017, 10/14/2016, 10/09/2015, Additional history exists FOOT EXAM 02/17/2019 02/17/2018, 02/17/2018, 02/17/2018, Additional history exists PNEUMOCOCCAL 0-64 YRS (1 of 09/27/2019 Postponed from 1 - PPSV23) 1976 (Other) DTaP/Tdap/Td Vaccines (1 - 12/10/2019 Postponed from Tdap) 1981 (Patient refused) HEMOGLOBIN A1C 02/01/2020 08/02/2019, 02/09/2018, 08/12/2017, Additional history exists DEPRESSION SCREENING 04/14/2020 04/14/2019 LIPID DISORDER SCREENING 08/08/2020 08/08/2019, 08/02/2019, 02/09/2018, Additional history exists INFLUENZA VACCINE Completed 09/15/2019, 05/20/2018, 06/17/2016, Additional history exists HEPATITIS A IMMUNIZATION Aged Out No longer eligible SERIES based on patient's age to complete this topic HPV IMMUNIZATION SERIES Aged Out No longer eligible based on patient's age to complete this topic MENINGOCOCCAL VACCINE IMM Aged Out No longer eligible based on patient's age to complete this topic documented as of this encounter Goals Goal Patient Goal Associated Recent Patient-Stated? Author Type Problems Progress Blood Pressure Blood Pressure 122/98 No Myles, < 140/90 (09/15/2019 MD Gay 11:00 AM EST) Note: This is an individualized treatment (blood pressure) goal for Eli Pradeep: Displayed above (on the left) is your goal for blood pressure control. Your most recent blood pressure is also shown above, on the right. You should try to achieve blood pressures that are lower than your goal listed above (on the left). Depression screen (PHQ-9) total score < 5 Depression No Gay Bueno MD Note: This is an individualized treatment (depression) goal for Eli Fernández: Displayed above is your goal for a depression screening (PHQ-9) score that would indicate good control of your depression. Diabetes < 7.0 Diabetes 6.6 (08/02/2019 11:35 AM EST) No Gay Bueno MD Note: Diabetes Care Plan According to current 2014 ADA guidelines the patient A1C goal is less than 7. The patient's last A1C was Lab Results Lab Results Value Date/Time GLYCO 11.7 11/10/2014 1109 The patient is:above goal . As your provider, it is important that I advise you regarding: your current medications and help you with any challenges you may face taking your medications as directed (ex. instructions, cost, side effects, and interactions). Important lifestyle changes:diet, glucose monitoring and medication compliance your clinical goals and how you can achieve success:weight reduction, exercise plan, diet management and glucose monitoring medication management: adjusted medications as appropriate patient education/self-management tools provided: Yes To successfully manage my Diabetes I will: have lab work every six months if my previous A1c was 7 or less. If my results were greater than 7, I will have lab work every three months. My goal is to control my diabetes by keeping A1c below 7.0 take medications every day as prescribed by my healthcare provider and if unable to take them I will discuss with my provider. exercise/walk 45 minutes 4 day(s) per week. If I experience chest pain, chest tightness, or shortness of breath, I will seek medical attention immediately. check feet daily. If sores or irritation are noticed, will seek medical attention. follow a low carbohydrate and low fat diet. My goal is an LDL (bad cholesterol) number less than 100 when I have my routine lab work. check blood sugar as instructed and will call my healthcare provider if the results are consistently below 70 or above 300. I will monitor for symptoms of low blood sugar (feeling faint, dizzy, lig htheaded, jittery, sweaty, or hungry), if symptoms are noticed, I will eat or drink something (glucose tabs, orange juice, candy) to help raise sugar. record my blood sugar results (including dextrose sticks). Wantr is safe and secure way for you to do this in your medical record online. try to obtain an ideal body weight. My recent weight was Weight: 182 lb ( 82.555 kg). My weight loss goal for my next office visit is 7 lbs . to prevent kidney problems common to people with diabetes I will complete a yearly Microalbumin to check for protein in urine. I will talk with my healthcare provider about medications to prevent diabetic renal disease. to prevent diabetic retinopathy I will see an eye doctor yearly. A yearly dilated eye exam helps prevent blindness. if currently smoking, will discuss how to quit smoking with my healthcare provider and work towards quitting. Glycohemoglobin A1c < 7.0 Diabetes 6.6 (08/02/2019 11:35 AM No Gay Bueno MD EST) Note: This is an individualized treatment (diabetes control, HgbA1C) goal for Eli Fernández: Displayed above is your progress towards your HgbA1C goal. Your goal is shown above (on the left); your most recent HgbA1C is shown on the right. Note that lower numbers are better. Glycohemoglobin A1c < 8.0 Diabetes 6.6 (08/02/2019 11:35 AM No Gay Bueno MD EST) Note: This is an individualized treatment (diabetes control, HgbA1C) goal for Eli Fernández: Displayed above is your progress towards your HgbA1C goal. Your goal is shown above (on the left); your most recent HgbA1C is shown on the right. Note that lower numbers are better. Keep a regular sleep schedule Lifestyle No Gay Bueno MD Note: This is an individualized lifestyle goal for Eli Fernández: Please maintain a regular sleep schedule. This may help with some symptoms of depression. Keep immunizations current Lifestyle No Gay Bueno MD Note: This is an individualized lifestyle goal for Eli Fernández: Please be sure to keep up-to-date on recommended immunizations. For example, this would include a yearly influenza vaccine. Immunization status can be seen by looking at the Health Maintenance sections of your [facility], Plan of Care, and any After Visit Summaries. Weight loss vs. 18 mo Lifestyle 0.1 (09/15/2019 10:45 AM EST) No Gay Bueno MD max (lbs) >= 10 Note: This is an individualized lifestyle goal for Eli Fernández: Your body mass index (BMI) is more than 30. You should lose weight. A reasonable starting goal is to lose 10 pounds. Displayed above is how many pounds you have lost thus far towards your 10 pound weight loss goal. Take all prescribed medications as directed Self-management No Gay Bueno MD Note: This is an individualized self-management goal for Eli Fernández: Please take all prescribed medications as directed. 1. Do not skip doses. If you cannot afford your medications, talk with your doctor. 2. Use a pill reminder system such as a pill box if needed. Your pharmacist can help you with this. 3. Contact your Pharmacy 5 days before your medication runs out. If you cannot take your medications for any reasons, talk with your doctor. 4. Please bring all of your medication bottles and inhalers (or a list of all your medications/inhalers) with you to every visit. Potential barriers to meeting all of your care plan goals will continue to be addressed on an ongoing basis. documented as of this encounter Results Not on filedocumented in this encounter Visit Diagnoses Diagnosis Neck pain Cervicalgia Essential hypertension Unspecified essential hypertension Elevated blood sugar Other abnormal glucose Allergic rhinitis due to other allergic trigger, unspecified seasonality Insomnia, unspecified type Lipid disorder Unspecified disorder of lipoid metabolism Weight gain Abnormal weight gain documented in this encounter Guarantor Name Account Type Relation to Date of Phone Billing Patient Address Felicia Fernández Personal/Family 1970 [address] [phone] [place], [place] (Work) [id number] documented as of this encounter
[2019-10-24 23:05] LABS: ABS Eosinophils 0.1 10^3/ul (0-0.6); ABS Lymphocytes 2.2 10^3/ul (1.0-4.8); ABS Monocytes 0.4 10^3/ul (0-0.8); ABS Neutrophils 2.5 10^3/ul (1.5-7.7); Eosinophil % 2.3 %; Hematocrit 33 % (35-47); Hemoglobin 11.4 g/dL (12.0-16.0); Lymphocyte % 41.1 %; Mean Corpuscular HGB Conc 35 g/dL (31-36); Mean Corpuscular Hemoglobin 34 pg (27-31); Mean Corpuscular Volume 97 fL (80-97); Mean Platelet Volume 7.4 fL (7.4-10.4); Nucleated Red Blood Cells % 0.1; Platelet Count 153 10^3/uL (150-450); Red Blood Count 3.39 10^6 /uL (3.70-4.87); Red Cell Distribution Width 14 % (10-15); White Blood Count 5.3 10^3/uL (3.5-10.8)
[2019-10-24 23:13] LABS: Activated Partial Thrombo Time 26.8 seconds (26.0-38.0); INR 0.97 (0.82-1.09)
[2019-10-24 23:24] LABS: ALT 23 U/L (7-52); AST 25 U/L (13-39); Albumin 3.9 g/dL (3.2-5.2); Albumin/Globulin Ratio 1.6 (1-3); Alkaline Phosphatase 88 U/L (34-104); Anion Gap 7 mmol/L (2-11); BUN/Creatinine Ratio 30.8 (8-20); Blood Urea Nitrogen 28 mg/dL (6-24); CO2 Carbon Dioxide 24 mmol/L (22-32); Calcium 8.8 mg/dL (8.6-10.3); Chloride 105 mmol/L (101-111); Cholesterol 218 mg/dL; EGFR African American 79.5 (>60); EGFR Non-African American 65.7 (>60); Globulin 2.5 g/dL (2-4); Glucose 124 mg/dL (70-100); HDL Cholesterol 49.8 mg/dL; Sodium 136 mmol/L (135-145); Total Protein 6.4 g/dL (6.4-8.9); Triglycerides 498 mg/dL
[2019-10-24 23:38] LABS: LDL Cholesterol Direct 118 mg/dL
[2019-10-24 23:45] LABS: Alcohol < 10 mg/dL (<10)
[2019-10-24] MEDS ORDERED: LORazepam INJ* 2 MG/ML 1 ML VIAL IV PUSH ONE (23:56)
[2019-10-24] MEDS ORDERED: Lorazepam PYXIS KEY PRN (23:56)
[2019-10-25] MEDS ORDERED: Lorazepam PYXIS KEY ONE (00:01)
[2019-10-25] MEDS ORDERED: Acetaminophen TAB* 325 MG PO PRN (00:51)
[2019-10-25] MEDS ORDERED: Aspirin 81 mg CHEW TAB* 81 MG TAB.CHEW PO ONE (00:52)
[2019-10-25] MEDS ORDERED: Ondansetron INJ* 2 MG/ML VIAL IV PRN (00:52)
[2019-10-25] MEDS ORDERED: Thiamine INJ* 100 MG, Folic Acid IV* 1 MG, Multiple Vitamin IV ADULT* 10 ML in D5NS 0.9... IV ONE (00:53)
[2019-10-25] MEDS ORDERED: Dextrose 50% Syringe 50 ML* 25 GM/50 ML SYRINGE IV PUSH PRN (00:58)
[2019-10-25] MEDS ORDERED: Albuterol HFA INHALER* 8 gm MDI INH PRN (00:58)
[2019-10-25] MEDS ORDERED: LORazepam TAB(*) 1 MG PO SCH (01:00)
[2019-10-25 01:28] LABS: Urine Appearance Cloudy; Urine Bilirubin Negative (Negative); Urine Blood 1+ (Negative); Urine Color Yellow; Urine Glucose Negative (Negative); Urine Ketones Negative (Negative); Urine Nitrite Negative (Negative); Urine Protein Negative (Negative); Urine Specific Gravity 1.048 (1.010-1.030); Urine Urobilinogen Negative (Negative)
[2019-10-25 02:04] LABS: Urine Benzodiazepine Screen Presumptive Positive (None Detect); Urine Opiates Screen None Detected (None Detect)
[2019-10-25 02:13] LABS: Urine Bacteria Absent (Absent); Urine Red Blood Cell 3+(>10/hpf) (Absent); Urine Squamous Epithelial Cell Present (Absent); Urine White Blood Cell Trace(0-5/hpf) (Absent)
--- NOTE | 2019-10-25 03:45 | HP ---
CC: Dr. Bueno; Dr. Flores * HISTORY AND PHYSICAL: DATE OF ADMISSION: 10/25/19 PRIMARY CARE PROVIDER: Dr. Bueno. ATTENDING PHYSICIAN WHILE IN THE HOSPITAL: Dr. Viola Baca * (report dictated by Carlos Basurto NP). CONSULTING NEUROLOGIST: Dr. Flores. CHIEF COMPLAINT: 1. Altered mental status. 2. Difficulty with speech. HISTORY OF PRESENT ILLNESS: Ms. Boateng is a 49-year-old female patient. She has a history of GERD, diabetes, hypertension, hyperlipidemia, chronic neck pain , anxiety, depression, asthma, who comes in and also has a history of heavy alcohol. She drinks 3 large glasses of wine a day. The states that they are not typical glasses of wine, they are rather large. He states that her last heavy alcohol consumption was on Thursday and that they have been trying to cut back. They were out at dinner tonight and they were sitting down at their table and the fiance noted that her arms started shaking and then her legs started shaking, and she was not making any sense and I asked him to elaborate on this and he said she was not slurring, only a couple of words were slurred, what he noticed was that she was confused and talking same things that did not make sense in the context of what they were talking about. He says that she sounded confused. It lasted about 3 to 5 minutes and then the confusion persisted thereon afterwards. He does state that she was staring and not responding. If she did respond, it did not make any sense. There were no reports of facial drooping. There were no reports of weakness to 1 side. There were no reports of loss of vision. The patient says that she remembers that she did state that she was confused, she remembers being confused, she remembers the ambulance being called, and she remembers coming into the hospital. The fiance states that she did not bite her tongue, there was no bowel or bladder incontinence reported. There was report via EMS that there was a white substance found or white powder at the scene and it was on a . The fiance again was concerned. He had called 911. There has been no reports of nausea or vomiting. No abdominal pain, no chest pain, no shortness of breath, no recent fevers or chills, and no change in medications and no other reported drug use. She came into the ER, a code matthew was called because there was concern for possible dysarthria. She was evaluated by [facility]. Time of onset of these symptoms were about 1645 [facility] the symptoms could have been metabolic related. Recommended checking urine tox, alcohol level, and did not recommend TPA because she seemed to be continually improving at this point, but because of the concern of altered mental status, possible geovany castro, we were asked to evaluate in admission. PAST MEDICAL HISTORY: Significant for: 1. GERD. 2. Diabetes. 3. Hyperlipidemia. 4. Hypertension. 5. Chronic neck pain. 6. Anxiety. 7. Depression. 8. Asthma. PAST SURGICAL HISTORY: 1. She has had a right breast lumpectomy. 2. She has had left thumb trigger finger surgery. 3. Appendectomy. 4. Tonsillectomy. HOME MEDICATIONS: According to the list that was provided include: 1. Soma 350 mg every 6 hours as needed. 2. Trazodone 50 mg daily. 3. Metformin 500 mg daily. 4. Prilosec 20 mg daily. 5. Multivitamin 1 tablet daily. 6. Lisinopril 20 mg daily. 7. Ibuprofen 600 mg every 6 hours as needed. 8. Lexapro 20 mg p.o. daily. 9. Lipitor 40 mg daily. 10. Ventolin 1 to 2 puffs inhaled every 6 hours as needed. 11. Tylenol 325 mg every 6 hours as needed. 12. Xanax 0.25 mg p.o. b.i.d. ALLERGIES TO MEDICATIONS: Include no known drug allergies. FAMILY HISTORY: Her mother is healthy. Her father has a history of IA, hypertension, and a brain aneurysm. SOCIAL HISTORY: She is a half a pack a day smoker. She also does drink 3 large glasses of wine daily and last drink was approximately 2 nights ago. Surrogate decision maker is her fiance. REVIEW OF SYSTEMS: There is no documented fevers. Denied having any significant weight change. There is no ear discharge. There is no double vision. No rhinorrhea. No sore throat. No thyroid enlargement. Denied having any chest pain. There is no orthopnea. No nocturnal dyspnea. Again, no abdominal pain, no nausea, no vomiting, no dysuria, no frequency, no seizure , no loss of consciousness, no pruritus, and no skin ulcerations. Review of 14 systems completed, all others negative. PHYSICAL EXAMINATION GENERAL: At this time, Ms. Boateng is a 49-year-old female patient. She is sitting in the ED stretcher. She does not appear to be in any acute distress. VITAL SIGNS: Blood pressure 126/93, pulse 81, respirations 18, O2 saturation 96 % on room air, and temperature 97.7. HEENT: Head atraumatic, normocephalic. Eyes: EOMs are intact. Sclerae anicteric and not pale. NECK: Supple. Throat: Oral mucosa appears to be moist. No oropharyngeal erythema. LUNGS: Clear to auscultation. No wheezes, rales, or rhonchi. HEART: Heart sounds S1, S2. She had a regular rate and rhythm. No murmurs, rubs, or gallops. ABDOMEN: Soft, flat, nontender. Bowel sounds were present. EXTREMITIES: Pulses were 2+ throughout. She is moving all 4 extremities with 5 /5 strength. NEUROLOGIC: She is awake. She is alert to place, time, and self. Her speech was clear. There was no slurring. At times when asking questions, she did give an inappropriate response; however, she did become reorientated quickly. There was no facial drooping, no visual field defects could be found. No gaze preference. Cranial nerves II through XII were intact. Tongue midline. Again oropharynx rises symmetrically. No dysarthria. No drift noted to the upper or lower extremities. She had no neglect. There was some subtle dysmetria noted to [id number], worse on the right versus the left. Glmn-zi-beuk intact bilaterally. She had 5/5 strength distally and proximally to the upper and lower extremities. At this point, no focal deficits were seen on my exam. Her skin was grossly intact. She did have postural tremor noted as well, worse in the left than the right and an action tremor as well. LABORATORY DATA: WBC 5.3, RBC of 3.39, hemoglobin 11.4, hematocrit 33, platelet count 153. INR 0.97, PTT 26.8. Sodium 136, potassium 4, chloride 105 , bicarb 24, BUN 28, creatinine 0.91, glucose 124, lactic 0.9, calcium 8.9, total bili 0.3. AST 25, ALT 23, alk phos 88, ammonia was 46, troponin 0, albumin 3.9. LDL 118. Urine showed a high specific gravity of 1.048. Toxicology: Serum alcohol was less than 10. She had a head CTA obtained today which revealed, impression: Normal head CTA, mildly atherosclerotic and nonstenotic bilateral common and right internal carotid arteries, minimally atherosclerotic nonstenotic left internal carotid artery. She had an EKG obtained today as well which revealed a normal sinus rhythm, rate of 80. No ST elevation or T-wave inversions noted. When we review it with an EKG from 2010, it appears to be similar. She did have a brain CT obtained today as well which revealed no acute intracranial abnormality , ASPECT score was 10. Brain atrophy out of proportion to the patient's age. She did have a chest x-ray obtained today as well which showed poor inspiration. It appears that she does have what appears to be cardiomegaly. No infiltrates were noted. It was under- penetrated. Old medical records were reviewed. ASSESSMENT AND PLAN: Ms. Boateng is a 49-year-old female patient, coming in to the ED today with complaints of confusion, difficulty with speech, tremors that happened around 164. A code castro was called. She was deemed not to be a tPA candidate as she was improving and it was felt that this could be metabolic in nature. She will be admitted under inpatient status for: 1. Altered mental status. At this point, I do not suspect that she had a CVA. It is unclear. It sounds like she may have had a withdrawal seizure possibly and the confusion that is being reported could be from withdrawing from alcohol. I also, given the reports of EMS, would like to get a urine tox screen. That being said, I am going to give her an aspirin. There were reports of some dysarthria from the and slurring of her words, so I am giving her an aspirin. I am going to go head and get an MRI and an echo with a bubble study, place her on telemetry check, neuro checks. I have ordered an EEG , waiting on the U-tox. I would like to consult our neurology team in the morning to evaluate the patient and will continue to follow. I do note she is on Soma, trazodone, and Xanax. Polypharmacy certainly could have contributed. I am holding those medications. 2. EtOH abuse with elements of withdrawal. She does have a tremor which could certainly be withdrawal and this could have been a withdrawal seizure. I am going to give her a banana bag and will start her on the [facility] protocol. 3. Diabetes. I will go ahead and place her on a lispro sliding scale. 4. Hypertension. In the setting of possible CVA, allow for permissive hypertension. We can restart this after her MRI. 5. Hyperlipidemia. Again LDL is greater than 118. The goal LDL will be less than 70. If MRI is positive, I will keep her Lipitor at 40 for now. 6. History of asthma. P.r.n. albuterol has been ordered. 7. Gastroesophageal reflux disease. Continue PPI therapy. 8. Depression and anxiety. Continue with her Lexapro. 9. Neck pain. Again, we will continue with supportive care. 10. Code status: Full code. 11. Fluids, electrolytes, and nutrition: She can have a consistent carb diet if she passes a swallowing evaluation. TIME SPENT: Time spent on the admission was approximately 60 minutes, greater than half the time was spent [id number] with the patient obtaining my history and physical, other half time spent going over the plan of care with the patient and implementing the plan of care. I discussed the plan of care with my attending Dr. Baca, she is in agreement. CARLOS BASURTO, [place] [id number]/[facility] #: [id number] YANNI
[2019-10-25] MEDS ORDERED: Heparin VIAL(*) 5000 UNITS/ML VIAL (FIVE THOUSAND) SUBCUT SCH (06:00)
[2019-10-25 06:08] LABS: ABS Eosinophils 0.1 10^3/ul (0-0.6); ABS Lymphocytes 2.4 10^3/ul (1.0-4.8); ABS Monocytes 0.3 10^3/ul (0-0.8); ABS Neutrophils 1.9 10^3/ul (1.5-7.7); Eosinophil % 2.7 %; Hematocrit 33 % (35-47); Hemoglobin 11.1 g/dL (12.0-16.0); Lymphocyte % 50.1 %; Mean Corpuscular HGB Conc 34 g/dL (31-36); Mean Corpuscular Hemoglobin 34 pg (27-31); Mean Corpuscular Volume 99 fL (80-97); Mean Platelet Volume 8.1 fL (7.4-10.4); Platelet Count 139 10^3/uL (150-450); Red Cell Distribution Width 14 % (10-15); White Blood Count 4.7 10^3/uL (3.5-10.8)
[2019-10-25 06:32] LABS: BUN/Creatinine Ratio 29.3 (8-20); Calcium 8.4 mg/dL (8.6-10.3); EGFR African American 89.7 (>60); EGFR Non-African American 74.1 (>60); HDL Cholesterol 49.2 mg/dL; Potassium 3.9 mmol/L (3.5-5.0)
[2019-10-25] MEDS ORDERED: Aspirin 81 mg CHEW TAB* 81 MG TAB.CHEW PO SCH (09:00)
[2019-10-25] MEDS ORDERED: Folic Acid TAB* 1 MG PO SCH (09:00)
[2019-10-25] MEDS ORDERED: Thiamine TAB* 100 MG TAB PO SCH (09:00)
[2019-10-25] MEDS ORDERED: Pantoprazole TAB * 40 MG TAB PO SCH (09:00)
[2019-10-25] MEDS ORDERED: Escitalopram * 20 MG TABLET PO SCH (09:00)
[2019-10-25] MEDS ORDERED: Atorvastatin* 40 MG TAB PO SCH (09:00)
[2019-10-25] MEDS ORDERED: Multivitamins/Minerals TAB PO SCH (09:00)
[2019-10-25] MEDS: Insulin LISPRO* 1 UNITS UNIT SUBCUT SCH ×2 (09:36→13:17)
--- NOTE | 2019-10-25 10:58 | ECHO ---
*[facility]* [place] [address] Fax #: [phone] Transthoracic Echocardiogram Patient: Vanesa Tijerina : 1970 Study Date: 10/25/2019 Age: 49 Gender: F HR: 70 bpm Height: 62 in /157.5 cm BSA: 1.83 m^2 Weight: 179.6 lb /81.6 kg BMI: 32.9 kg/m^2 *Batch Maker: * Gayle Tabor RDCS *Referring Physician: * Carlos BasurtoReading Physician: * Hardy Palacios MD Indications: CVA. History: Asthma. Risk factors: Current tobacco use. Hypertension. Diabetes mellitus. Dyslipidemia. Conclusions Summary: - Left ventricle: Systolic function is normal. The estimated ejection fraction is 55-60%. Wall motion is normal; there are no regional wall motion abnormalities. - Right ventricle: Systolic function is normal. - Atrial septum: A PFO is not demonstrated by color Doppler or agitated saline contrast. - Mitral valve: There is trace to mild regurgitation. - Aortic valve: There is no evidence of stenosis. - Tricuspid valve: There is trace regurgitation. - Pulmonary arteries: Systolic pressure can not be accurately estimated. - Study data: No prior study is available for comparison. Study data: Transthoracic echocardiogram. Procedure: Transthoracic echocardiography was performed. Image quality was fair. A bubble study was performed. Complete 2D, spectral Doppler, and color flow Doppler. Location: Bedside. Patient status: Inpatient. Patient room number: 436. No prior study is available for comparison. Rhythm: Normal sinus rhythm. Findings Left ventricle: The cavity size is normal. Wall thickness is normal. Systolic function is normal. The estimated ejection fraction is 55-60%. Wall motion is normal; there are no regional wall motion abnormalities. Doppler parameters are consistent with abnormal left ventricular relaxation (grade 1 diastolic dysfunction). Right ventricle: The cavity size is normal. Systolic function is normal. Left atrium: The atrium is normal in size. Right atrium: The atrium is normal in size. Atrial septum: A PFO is not demonstrated by color Doppler or agitated saline contrast. Negative Bubble Study. Images 92 and 94. Mitral valve: The leaflets are mildly thickened. There is no evidence of stenosis. There is trace to mild regurgitation. Aortic valve: The valve is trileaflet. The leaflets are mildly thickened. There is no evidence of stenosis. There is no significant regurgitation. Tricuspid valve: The leaflets are normal thickness. There is no evidence of stenosis. There is trace regurgitation. Pulmonic valve: The leaflets are normal thickness. There is no evidence of stenosis. There is trace regurgitation. Aorta: Aortic root: The aortic root is appears normal. Ascending aorta: The ascending aorta is appears normal. Aortic arch: The aortic arch is appears normal. Pericardium: There is no significant pericardial effusion. Pulmonary arteries: The main pulmonary artery is normal-sized. Systolic pressure can not be accurately estimated. Systemic veins: Inferior vena cava: The vessel is normal in size. There is (>= 50%) respiratory change in the IVC dimension. Measurements Left ventricle Value Ref Right atrium continued Value Ref ALEXANDRA, LAX 4.3 cm 3.8 - 5.2 ML dim, ES, A4C 3.8 cm 2.6 - 4.4 ESD, LAX 2.7 cm 2.2 - 3.5 Estimated RAP 3 mm Hg --------- FS, LAX 37 % - 45 PW, ED, LAX 0.7 cm 0.6 - 0.9 Aortic valve Value Ref FS 37 % - 45 Tosin diam, ED 2.2 cm --------- Mid-wall FS 18 % Peak v, S 1.62 m/sec --------- PW, ED 0.7 cm 0.6 - 0.9 VTI, S 30.5 cm --------- E', lat tosin, TDI (L) 9.2 cm/sec >=10.0 Mean grad, S 5.0 mm Hg -- ------- E/e', lat tosin, 9 Peak grad, S 10.0 mm Hg ----- ---- TDI LVOT/AV, VTI ratio 0.72 --------- E', med tosin, TDI (L) 6.1 cm/sec >=7.0 E/e', med tosin, 14 Mitral valve Value Ref TDI Peak E 0.83 m/sec --------- E', avg, TDI 7.7 cm/sec Peak A 0.98 m/sec ----- ---- E/e', avg, TDI 11 <=14 Decel time 173 ms -- ------- Peak grad, D 2.7 mm Hg --------- LVOT Value Ref Peak E/A ratio 0.8 --------- Peak richard, S 1.14 m/sec VTI, S 22.0 cm Pulmonic valve Value Ref Peak grad, S 5 mm Hg Peak v, S 0.97 m/sec --------- Mean grad, S 3 mm Hg Peak grad, S 4.0 mm Hg --------- Ventricular septum Value Ref Aortic root Value Ref IVS, ED 0.8 cm 0.6 - 0.9 Root diam 3.1 cm <4.0 Right ventricle Value Ref Ascending aorta Value Ref ALEXANDRA, LAX 3.0 cm AAo AP diam, S 3.4 cm --------- ALEXANDRA minor ax, A4C 3.2 cm 1.9 - 3.5 mid Aortic arch Value Ref Arch diam 2.7 cm --------- Left atrium Value Ref AP dim, ES 3.60 cm 2.70 - Decending aorta Value Ref 3.80 Nilsa peak richard 0.79 m/sec --------- ML dim, A4C 3.9 cm SI dim, A4C 4.8 cm Inferior vena cava Value Ref Vol/bsa, ES, 1-p 23 ml/m^2 11 - 40 Diam 2.0 cm --------- A4C Vol/bsa, ES, A/L 24 ml/m^2 16 - 34 Right atrium Value Ref SI dim, ES 4.5 cm 3.4 - 5.3 Legend: (L) and (H) renaldo values outside specified reference range. Prepared and electronically signed by Hardy Palacios MD 10/25/2019 10:56
[2019-10-25 12:49] LABS: TSH (Thyroid Stimulating Horm) 2.64 mcIU/mL (0.34-5.60)
[2019-10-25 12:51] LABS: Free T4 0.61 ng/dL (0.61-1.12)
[2019-10-25 15:49] VITALS: BP 154/88
--- NOTE | 2019-10-25 18:52 | CONS ---
NEUROLOGY CONSULTATION NOTE: DATE OF CONSULT: 10/25/19 CONSULTED BY: Carlos Basurto NP REASON FOR CONSULT: Episode of confusion. CHIEF COMPLAINT: "I feel well." HISTORY OF PRESENT ILLNESS: Ms. 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 The episode lasted approximately 2 minutes. She was sitting down having dinner with her fiance when suddenly she became clammy, pale/castro in color, her eyes were slightly droopy, and she was slow at responding. Again, this lasted for 2 minutes. This preceded her entire day of working as a lead housekeeper. She arrived at 6:30 p.m. yesterday. During dinner before the episode, she also had hand tremors that progressed to tremors in the legs. She never lost consciousness. This history was mostly obtained by the patient's fiance via telephone. The patient stated that she had confusion because she was extremely tired, worked the entire day, was not drinking enough fluids, and had slightly more alcohol than she usually does this past weekend. 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 She has never had any similar episodes in the past. She denied any focal weakness, paresthesias, headache, visual disturbance, slurred speech, swallowing difficulty, or impairment in her bowel or bladder functions. She is completely back to baseline and would like to go home. PAST MEDICAL HISTORY: GERD, borderline diabetic, herniated disk in the cervical spine, arthritis, trigger fingers, overweight, appendectomy, and breast biopsy. HOME MEDICATIONS: 1. Omeprazole 20 mg p.o. in the morning. 2. Ibuprofen 600 mg p.o. every 6 hours as needed. 3. Acetaminophen 325 mg p.o. every 6 hours. 4. Multivitamin. 5. Atorvastatin. 6. Metformin. 7. Lisinopril 20 mg p.o. daily. 8. Escitalopram 20 mg p.o. daily. 9. Trazodone 50 mg p.o. at bedtime. 10. Alprazolam 0.25 mg p.o. b.i.d. 11. Carisoprodol 350 mg p.o. every 6 hours. ALLERGIES: No known drug allergies. FAMILY HISTORY: Dad had a stroke in [place]. 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 She has no kids. She has a fiance who she lives with. She smokes 1 cigarette a day. She drinks a glass or two of wine during dinner. She had drank approximately three 12 ounces of wine Thursday leading to Thursday. She did not drink enough water on Thursday or Thursday. REVIEW OF SYSTEMS: A 14-point review of systems was obtained and otherwise negative except for what was mentioned in the HPI. PHYSICAL EXAM: Vitals: Temperature 97.9, pulse of 92, respirations 19, oxygen saturation of 95%, blood pressure of 154/101. General: Well-nourished, well- developed female. She appears slightly restless. She appears slightly anxious and tremulous. She is in no acute distress. Head: Atraumatic, normocephalic. No nuchal rigidity. Eyes: Conjunctivae/corneas are clear. Cardiovascular: Regular rate and rhythm with normal S1, S2 with no murmurs. Pulmonary: Clear to auscultation bilaterally with no wheezing or rhonchi. Extremities: Normal range of motion bilaterally. No hammertoes or high arches. Skin: No skin lesions or lacerations. Psych: Affect is broad, normal mood. Easy to establish rapport. Neurological Examination: Mental Status: Awake, alert, and oriented to person, place, time, and general circumstances. She has no evidence of word-finding difficulty or dysarthria. Cranial Nerves: Pupils are equal, round, and reactive to light. Extraocular muscles are intact. There is no facial asymmetry. Tongue is symmetrical and midline with no atrophy or fasciculation. Motor Examination: 5/5 strength in the upper and lower extremities bilaterally. Reflexes 3+ in the ankles with positive crossed adductors bilaterally. 2+ in the upper extremities, triceps, biceps, and brachioradialis. Sensation is intact to light touch throughout. Coordination: Normal [id number]-[id number] and ziwg-ul-bvxp testing. Gait: Normal stance and gait. No ataxia. DIAGNOSTIC STUDIES/LAB DATA: WBC of 3.7, hemoglobin of 11, hematocrit of 33, platelet count of 139. INR 0.97, APTT 26.8. Sodium of 138, potassium is 3.9, chloride of 109, BUN of 24, creatinine of 0.82, BUN/creatinine ratio was significantly elevated at 30 on admission. Roceo-jc-[id number] glucose of 112. Hemoglobin A1c 6.7. Calcium was 8.4. Vitamin B12 of 335. TSH of 2.64, free T4 of 0.61. Urinalysis negative for pyuria. Toxicology screen is positive for benzodiazepines. The patient had a CT of the head without contrast that showed no evidence of intracranial abnormality. She had a CTA head and neck that showed no large vessel occlusion, aneurysm, or dissection. She had an MRI of the brain that showed no evidence of acute stroke or tumors. ASSESSMENT AND RECOMMENDATIONS: Ms. Vanesa Boateng is a 49-year-old female who has history of cervical spondylosis with myelopathy, gastroesophageal reflux disease, and alcohol dependency, who consumes excessive amount of wine during the weekends, who presented with a transient episode of confusion yesterday. Currently, the patient is asymptomatic, but appears slightly tremulous and wants to go home, possibly due to slight alcohol withdrawal symptoms. I do not suspect she had a stroke or seizure. The fact that she reports being dehydrated , worked all day on Thursday, did not consume enough fluids such as water over the weekend, and consumed increased amount of alcohol compared to her usual average suggests that she may have been dehydrated. She could have had postprandial hypotension given that her blood pressure was low when it was checked by her fiance today and since she had proceeding symptoms of feeling clammy and appeared pale. Another supportive factor of dehydration is that her BUN/creatinine ratio is elevated. We have ruled out a stroke with an MRI of the brain that was negative. Her EEG just showed diffuse slowing, which could be seen in a patient with sedation medication effect or excessive drowsiness. I recommend increasing her thiamine intake possibly to 200 or 250 mg of thiamine daily. I educated the patient and encouraged her to slowly wean off the alcohol, not drinking more than one small glass of wine (<6 oz). I also encouraged her to follow up with her hris specialist as she has some myelopathic findings on examination and may need a new updated MRI of the cervical spine and possibly the thoracic spine to evaluate the spondylosis with myelopathy. She is not complaining of any acute neck pain or any focal weakness to evaluate her as an inpatient. I discussed these findings and recommendations with the patient as well as her fiance at bedside. She would like to go home today. I have put a call out to Dr. Rico to discuss this further. [id number]/[facility] #: [id number] YANNI
--- NOTE | 2019-10-25 20:16 | EEG ---
ELECTROENCEPHALOGRAPHY: DATE OF STUDY: 10/25/19 - ROOM #436 DATE READ: 10/25/19 ORDERED BY: Carlos Basurto NP CLINICAL PROBLEM: Ms. Mt. Boateng is a 49-year-old female who developed an episode of confusion last night. This EEG was obtained to evaluate for epileptiform abnormalities or electrographic seizures. MEDICATIONS: 1. Humalog. 2. Aspirin. 3. Lipitor. 4. Lexapro. 5. Folate. 6. Multivitamin. 7. Protonix. 8. Vitamin B1. 9. Heparin. 10. Tylenol. 11. Albuterol. 12. Zofran. 13. Ativan. DURATION: 8:18 to 8:54. CLINICAL STATE: Awake and drowsy. REPORT: This recording was mostly obtained in drowsy state. The background consisted of mixed frequency slowing in the delta and theta range with retained organization, irregular anterior-posterior voltage gradient. There was brief normal waking background rhythm of 8-1/2 Hz, which was symmetrical and showed normal reactivity. There were diffuse low voltage irregular beta frequencies seen throughout the recording. Attenuation of the occipital rhythm accompanied drowsiness. Hyperventilation and photic stimulation were not performed. The patient had multiple episodes of excessive snoring throughout the recording. EKG showed normal sinus rhythm with a rate of 75 beats per minute. Throughout the recording, there were no clear epileptiform discharges or electrographic seizures. CLINICAL IMPRESSION: This is an abnormal drowsy and brief awake state due to diffuse slowing of the background, excessive beta frequency, and poorly sustained posterior dominant rhythm. These findings are suggestive of diffuse mild encephalopathy with superimposed beta frequency, which is seen in benzodiazepine therapy. [id number]/[facility] #: [id number] [facility]
--- NOTE | 2019-10-28 12:01 | DS ---
CC: Jose D Tsang DISCHARGE SUMMARY: DATE OF ADMISSION: 10/25/19 DATE OF DISCHARGE: 10/26/19 PRIMARY DIAGNOSIS: Delirium, multifactorial. SECONDARY DIAGNOSES: 1. Suspicion of seizure related to alcohol withdrawal. 2. Polypharmacy. 3. Gastroesophageal reflux disease. 4. Type 2 diabetes. 5. Hyperlipidemia. 6. Hypertension. 7. Chronic cervical pain. 8. Anxiety with depression. 9. Asthma. CONSULTATIONS: Dr. Flores of Neurology. PROCEDURES: None. COMPLICATIONS: None. HOSPITAL COURSE: Ms. Boateng is a 49-year-old woman who presented to the emergency department with episode of difficulty walking, difficulty with word finding, and some confusion. This followed the d ay where she had worked several hours without eating. Her reported that she drinks 3 large g lasses of wine per day and that she had had this level of alcohol consumption up to about 3 days prio r to admission and that they were trying to cut back on alcohol use. The patient's initial workup sh owed normal white count, hematocrit of 32%. The patient had a platelet level of 139 on day 2. Blood sugar was 144. Hemoglobin A1c was 6.7. Initial troponin was 0. Vitamin B12 was 335. TSH 2.6. LD L cholesterol was 118. Ammonia level was 46. LFTs were normal. Urinalysis showed 1+ blood and spec ific gravity of 1.048 consistent with dehydration. Serum alcohol level was 0 and urine tox screen wa s positive for benzodiazepines. Head CT on admission showed no acute intracranial abnormality, brain atrophy was out of proportion to the patient's age. CT angiogram of the head and neck showed mildly atherosclerotic and nonstenotic bilateral common and right internal carotid arteries and some minima l atherosclerosis in the left internal carotid artery. On the day following admission, the patient h ad an MRI of the brain that was unremarkable. The patient had a consultation with Dr. Flores of Neuro logy. His impression on the patient was that there was no TIA, no stroke. He did feel she had a sli ght withdrawal from alcohol with some tremors. He also thought it was multifactorial with dehydratio n, polypharmacy. An EEG was completed and read by Dr. Flores, which showed diffuse slowing, which can be seen in patient with excessive drowsiness or sedative medications. He recommended increasing her thiamine intake to 200 mg daily and weaning herself off alcohol, not to have more than 1 small glass of wine per day. Outpatient investigation for seizures could be pursued further if symptoms point in that direction. The medication the patient takes that could cause confusion includes Soma, alprazolam, trazodone. DISCHARGE MEDICATIONS: 1. Acetaminophen as needed. 2. Albuterol inhaler 1 to 2 puffs inhaled q.i.d. p.r.n. 3. Alprazolam 0.25 mg p.o. b.i.d. p.r.n. 4. Atorvastatin 40 mg p.o. q.h.s. 5. Escitalopram 20 mg p.o. q.a.m. 6. Lisinopril 20 mg p.o. daily. 7. Metformin 500 mg p.o. daily. 8. Multivitamin 1 tab p.o. daily. 9. Omeprazole 20 mg p.o. q.a.m. 10. Trazodone 50 mg p.o. q.h.s. 11. Carisoprodol 350 mg p.o. q.8 hours (reduced dose). 12. Ibuprofen 600 mg p.o. q.6 hours p.r.n. arthritis pain. DISPOSITION: To home. DIET: Low salt, low fat. ACTIVITY: As tolerated. STATUS: Observation. CONDITION: Stable. FOLLOWUP: Followup with primary care arranged for 11/03/19 at 2 p.m. [id number]/[facility] #: [id number]
== END 2019-10-25 17:00 | disposition home or self-care (01) ==
LOC: ED 22:11 → MEDTELE 10-25 00:47 → INTOOBSV 10-25 00:47
PROVIDERS: ADMIT Nurse Practitioner Family; ATTEND Internal Medicine
DX: R41.82 Altered mental status, unspecified (principal); E11.9 Type 2 diabetes mellitus without complications; E78.5 Hyperlipidemia, unspecified; I10 Essential (primary) hypertension; G89.29 Other chronic pain; M54.2 Cervicalgia; H53.8 Other visual disturbances; F10.10 Alcohol abuse, uncomplicated; E78.00 Pure hypercholesterolemia, unspecified; J45.909 Unspecified asthma, uncomplicated; K21.9 Gastro-esophageal reflux disease without esophagitis; F41.9 Anxiety disorder, unspecified; F32.9 Major depressive disorder, single episode, unspecified; E66.3 Overweight; M65.30 Trigger finger, unspecified finger; F17.210 Nicotine dependence, cigarettes, uncomplicated; Z79.84 Long term (current) use of oral hypoglycemic drugs; Z79.899 Other long term (current) drug therapy; Z91.81 History of falling
CPT/HCPCS: 36415; 70450; 70496; 70498; 70551; 71045; 80048; 80053; 80061; 80307; 80320; 81003; 81015; 82140; 82607; 83036; 83605; 83721; 84439; 84443; 84484; 85025; 85610; 85730; 87086; 93005; 93306; 95819; 96372; 96374; 99285; A9270-GY; G0378; G0480; J1644; J2060; J3411; Q9967